=== PATIENT | male | born 1985 | race Caucasian/White ===

== ENCOUNTER 2016-08-03 00:43 | Emergency (ER) | payer SELFPAY ==
--- NOTE | 2016-08-03 02:33 | ED CLINICAL REPORT ---
Clinical Report - Physicians/Mid Levels [facility] [address] [place] [address] 08/03/2016 0:47 Patient: CHAU MARTINEZ Time Seen: 01:44. Arrived- By private vehicle. Historian- patient. HISTORY OF PRESENT ILLNESS Location of injuries- chest. Chief Complaint: Injury to CHEST. The injury occurred several weeks ago. Occurred at home. The patient sustained a moderate blow (he was wrestling with a friend who landed on his chest). The patient complains of moderate pain. No blow to the head or loss of consciousness. REVIEW OF SYSTEMS No chills, fever, sweats, calf pain or cough. No difficulty breathing, pedal edema, palpitations, abdominal pain or constipation. No diarrhea, nausea, vomiting or urinary problems. he requests a refill on his albuterol. All systems otherwise negative, except as recorded above. PAST HISTORY Problems: Asthma. Gastroesophageal Reflux Disease. Hep C. Additional Surgeries: no known surgeries. Medications: Omeprazole Oral. Hydrocodone. Allergies: No Known Drug Allergy. SOCIAL HISTORY Current every day light tobacco smoker (cigarette)- less than 1/2 a pack per day. History of drug use: methamphetamines. FAMILY HISTORY Denies family medical history. ADDITIONAL NOTES The nursing notes have been reviewed. PHYSICAL EXAM Vital Signs: 08/03/2016 01:14 BP: 152/89. HR: 110. RR: 20. O2 saturation: 99%. Temp: 98 F. Have been reviewed. Appearance: Alert. Head: No swelling of head. Eyes: Pupils equal, round and reactive to light. ENT: No dental injury. Pharynx normal. Neck: Painless ROM. Non-tender. No vertebral tenderness. CVS: Heart sounds normal. Respiratory: Chest wall injury: mild tenderness located in the right and left chest. No splinting present. Abdomen: No visible injury. Soft and nontender. Bowel sounds normal. No organomegaly. No mass. Back: No tenderness. ROM normal. Skin: Skin intact. Skin warm and dry. Normal skin color. Normal skin turgor. Extremities: Normal inspection. Pelvis stable. No lower extremity edema. Neuro: No motor deficit. No sensory deficit. LABS, X-RAYS, AND EKG X-Rays: Chest X-ray negative. The X-rays were independently viewed by me. PROGRESS AND PROCEDURES Course of Care: Patient is stable. Patient/family counseled. Old medical records ordered. Old records unavailable. Disposition: Discharged. Condition: stable. CLINICAL IMPRESSION Asthma. Costochondritis INSTRUCTIONS Do not smoke- benefits of smoking cessation discussed (>3 -10 minutes). Seek medical help to quit smoking. Warnings: GENERAL WARNINGS: Return or contact your physician immediately if your condition worsens or changes unexpectedly, if not improving as expected, or if other problems arise. Prescription Medications: Ibuprofen 600mg tablets: take 1 tablet orally every 8 hours as needed for pain. Dispense thirty (30). No refills. Albuterol HFA oral inhaler: inhale 2 puffs via spacer every 4 hours as needed. Dispense one (1) unit. No refill. Understanding of the discharge instructions verbalized by patient. Follow-up with: [facility], , , [address], , [place], [address] Follow up in seven days. Call for the next available appointment. (Electronically signed by Cornel Rawls MD 08/03/2016 9:20)
--- NOTE | 2016-08-03 02:33 | ED ORDER SUMMARY ---
..... Patient: CHAU MARTINEZ OrderSheet [facility] VisitID: [id number] [address] [place] [address] 30y, M Registration Date/Time: 08/03/2016 ORDER SHEET Weight: 65.7 kg Allergies: No Known Drug Allergy GENERAL ORDERS: Chest 2V Urgent (01:01 08/03/2016 Gurwinder RAMIREZ) (Ack 1:07 AMcQuoid ER Tech1) (1:46 Jillian) MEDICATION ORDERS: IV FLUIDS: ORDER SHEET NOTES: [Electronically signed by Daniel Parra R.N. (02:43 08/03/2016)] [Electronically signed by Cornel Rawls MD (09:20 08/03/2016)] [Electronically locked/signed by Daniel Parra R.N. (02:43 08/03/2016)]
--- NOTE | 2016-08-03 02:33 | ED NURSING NOTES ---
Clinical Report - Nurses [facility] [place] [address] 08/03/2016 0:47 [id number] <<STRICKEN ENTRY-- Triage time 00:51 Aug 03 2016. Acuity: LEVEL 4. Chief Complaint: (right posterior chest wall pain). SEPSIS SCREEN: Sepsis Screen. Negative (no infection suspected/documented). SHAHID COMA SCORE: [place] Coma Scale: 15- eyes open spontaneously (4); best verbal response- oriented x 4 (5); best motor response- obeys commands (6). --00:56 Yoselyn Tejeda R.N. --END STRIKE>> Charted On Wrong Patient --01:17 Yoselyn Tejeda R.N. <<STRICKEN ENTRY-- 00:51 08/03/16. BP: 149/99. HR: 133. RR: 18. O2 saturation: 99%. Temp: 98.4 F. Pain level now 10/10. --00:56 Yoselyn Tejeda R.N. --END STRIKE>> Charted on wrong patient. --01:16 Yoselyn Tejeda R.N. Triage time 01:10. Acuity: LEVEL 4. --01:15 Daniel Parra R.N. 01:14 08/03/16. BP: 152/89. HR: 110. RR: 20. O2 saturation: 99%. Temp: 98 F. Pain level now 8/10. --01:15 Daniel Parra R.N. <<STRICKEN ENTRY-- Weight: 113.3 kg. Height/Length: 74 inches. BMI: 32.1. --END STRIKE>> Charted on wrong patient --00:49 Yoselyn Tejeda R.N.. Weight: 65.7 kg. Height/Length: 71 inches. BMI: 20.2. --00:49 Inderbitzen, Yoselyn, R.N. Medications Hydrocodone. --00:52 Yoselyn Tejeda R.N. Omeprazole Oral. --00:55 Yoselyn Tejeda R.N. Allergies No Known Drug Allergy. --00:54 Yoselyn Tejeda R.N. <<STRICKEN ENTRY-- Medication/allergy information source: the patient. --00:56 Yoselyn Tejeda R.N. --END STRIKE>> Charted On Wrong Patient --01:16 InderbitYoselyn dudley, R.N. History <<STRICKEN ENTRY-- Arrived by private vehicle, and accompanied by family. Onset. (8 days). ( pain started 8 days ago, feels like ribs on back of right side are popping. there is no recent trauma). No fever. Treatment MICROSTRATEGY DEVELOPER: (hydrocodone). SOCIAL HX: Heavy tobacco smoker- less than 1 pack per day. Occasional alcohol use. History of drug use: marijuana. No infectious disease exposure. ABUSE ASSESSMENT: No report of abuse. SELF HARM ASSESSMENT: A self harm assessment was performed. The patient answered "no" to the question "Have you recently felt down, depressed, or hopeless?", "Have you noticed less interest or pleasure in doing things?", "Do you have thoughts of harming or killing yourself?", "Are you here because you tried to hurt yourself?", "Have you ever tried to hurt yourself before today?", "Have you recently had thoughts about harming or killing others?" and "Do you have any dangerous items in your possession?". NUTRITIONAL RISK ASSESSMENT: The nutritional risk assessment revealed no deficiencies. FUNCTIONAL ASSESSMENT: Functional assessment: no impairments noted. LEARNING NEEDS ASSESSMENT: The learning needs assessment revealed no barriers. SKIN INTEGRITY ASSESSMENT: Skin integrity risk assessment completed. No skin integrity risk identified. --00:56 Yoselyn Tejeda R.N. --END STRIKE>> Charted On Wrong Patient --01:16 Yoselyn Tejeda R.N. Arrived by private vehicle. Historian: patient. Accompanied by friend. ( Pt stated he had a broken rib on the right side, but did not ever get it checked by a doctor. Pt was horse playing about 2 weeks ago and was hit in the chest with his friend's knees. Pt came in today with left sided). --01:15 Daniel Parra R.N. Treatment MICROSTRATEGY DEVELOPER: None. SOCIAL HX: Current every day light tobacco smoker (cigarette)- less than 1/2 a pack per day. History of heavy drug use: methamphetamines. --01:20 Daniel Parra R.N. PROBLEMS: Gastroesophageal Reflux Disease. Hep C. --00:55 Yoselyn Tejeda R.N. ADDITIONAL SURGERIES: no known surgeries. Interventions <<STRICKEN ENTRY-- 00:51 08/03/16. ID band on patient. --00:56 Yoselyn Tejeda R.N. --END STRIKE>> Charted On Wrong Patient --01:16 Yoselyn Tejeda R.N. ID band on patient. To waiting room. --01:15 Daniel Parra R.N. PHYSICAL ASSESSMENT GENERAL / NEURO / PSYCH: Alert. Oriented X 4. Appears in no acute distress. HEENT: Pupils equal, round and reactive to light. No facial asymmetry noted. Mucous membranes are pink. RESPIRATORY: Respirations not labored. Right mid- chest wall tenderness and left mid- chest wall tenderness. Breath sounds within normal limits. ( Pt says he is feeling sob, but shows no signs of labored breathing or sob.). CVS: Normal sinus rhythm noted. Capillary refill less than 2 seconds. Pulses within normal limits. GI / : Abdomen soft and nontender and normal bowel sounds. SKIN: Skin intact. Skin is warm and dry. Normal skin turgor. --01:19 Daniel Parra R.N. NURSING PROGRESS NOTES 00:55 08/03/16. The initial plan of care for this patient includes an assessment with efforts to address the presence of pain. This plan of care was discussed with the patient. Patient gowned. Reassurance given. Patient identifiers checked. Call light placed in reach. Side rails up x 1. Bed placed in lowest position. Brakes of bed on. Patient ready for evaluation. --00:59 Yoselyn Tejeda R.N. Patient gowned. ( pt was taken to x ray. pt ambulated without assistance to x ray.). --01:18 Daniel Parra R.N. DISPOSITION / DISCHARGE Departure time: 02:41. Condition at departure: unchanged. ( still having rib pain). No learning barriers present. Discharge instructions provided and reviewed with the patient. Reviewed medication(s) side effects, precautions, dosing and course information (allbuterol). Patient verbalized understanding. Written instructions provided in Persian. The patient was discharged by the physician. He was discharged home and accompanied by child nutrition assistant. He left the Emergency Department ambulatory and via private vehicle. Hotel Conc[employer] driving. --02:42 Daniel Parra R.N. 02:37 08/03/16. BP: 131/84. HR: 98. RR: 15. O2 saturation: 100%. Pain level now 08/16. --02:42 Daniel Parra R.N. Locked/Released at 08/03/2016 2:43 by Daniel Parra R.N.
--- NOTE | 2016-08-03 02:33 | ED ORDER SUMMARY ---
..... Patient: CHAU MARTINEZ OrderSheet [facility] VisitID: [id number] [address] [place] [address] 30y, M Registration Date/Time: 08/03/2016 ORDER SHEET Weight: 65.7 kg Allergies: No Known Drug Allergy GENERAL ORDERS: Chest 2V Urgent (01:01 08/03/2016 Gurwinder RAMIREZ) (Ack 1:07 AMcQuoid ER Tech1) (1:46 Jillian) MEDICATION ORDERS: IV FLUIDS: ORDER SHEET NOTES: [Electronically signed by Daniel Parra R.N. (02:43 08/03/2016)] [Electronically signed by Cornel Rawls MD (09:20 08/03/2016)] [Electronically locked/signed by Daniel Parra R.N. (02:43 08/03/2016)]
--- NOTE | 2016-08-03 02:33 | ED NURSING NOTES ---
Clinical Report - Nurses [facility] [address] [place] [address] 08/03/2016 0:47 [id number] <<STRICKEN ENTRY-- Triage time 00:51 Aug 03 2016. Acuity: LEVEL 4. Chief Complaint: (right posterior chest wall pain). SEPSIS SCREEN: Sepsis Screen. Negative (no infection suspected/documented). SHAHID COMA SCORE: [place] Coma Scale: 15- eyes open spontaneously (4); best verbal response- oriented x 4 (5); best motor response- obeys commands (6). --00:56 Yoselyn Tejeda R.N. --END STRIKE>> Charted On Wrong Patient --01:17 Yoselyn Tejeda R.N. <<STRICKEN ENTRY-- 00:51 08/03/16. BP: 149/99. HR: 133. RR: 18. O2 saturation: 99%. Temp: 98.4 F. Pain level now 10/10. --00:56 Yoselyn Tejeda R.N. --END STRIKE>> Charted on wrong patient. --01:16 Yoselyn Tejeda R.N. Triage time 01:10. Acuity: LEVEL 4. --01:15 Daniel Parra R.N. 01:14 08/03/16. BP: 152/89. HR: 110. RR: 20. O2 saturation: 99%. Temp: 98 F. Pain level now 8/10. --01:15 Daniel Parra R.N. <<STRICKEN ENTRY-- Weight: 113.3 kg. Height/Length: 74 inches. BMI: 32.1. --END STRIKE>> Charted on wrong patient --00:49 Yoselyn Tejeda R.N.. Weight: 65.7 kg. Height/Length: 71 inches. BMI: 20.2. --00:49 Inderbitzen, Yoselyn, R.N. Medications Hydrocodone. --00:52 Yoselyn Tejeda R.N. Omeprazole Oral. --00:55 Yoselyn Tejeda R.N. Allergies No Known Drug Allergy. --00:54 Yoselyn Tejeda R.N. <<STRICKEN ENTRY-- Medication/allergy information source: the patient. --00:56 Yoselyn Tejeda R.N. --END STRIKE>> Charted On Wrong Patient --01:16 InderbitYoselyn dudley, R.N. History <<STRICKEN ENTRY-- Arrived by private vehicle, and accompanied by family. Onset. (8 days). ( pain started 8 days ago, feels like ribs on back of right side are popping. there is no recent trauma). No fever. Treatment JOWL TRIMMER: (hydrocodone). SOCIAL HX: Heavy tobacco smoker- less than 1 pack per day. Occasional alcohol use. History of drug use: marijuana. No infectious disease exposure. ABUSE ASSESSMENT: No report of abuse. SELF HARM ASSESSMENT: A self harm assessment was performed. The patient answered "no" to the question "Have you recently felt down, depressed, or hopeless?", "Have you noticed less interest or pleasure in doing things?", "Do you have thoughts of harming or killing yourself?", "Are you here because you tried to hurt yourself?", "Have you ever tried to hurt yourself before today?", "Have you recently had thoughts about harming or killing others?" and "Do you have any dangerous items in your possession?". NUTRITIONAL RISK ASSESSMENT: The nutritional risk assessment revealed no deficiencies. FUNCTIONAL ASSESSMENT: Functional assessment: no impairments noted. LEARNING NEEDS ASSESSMENT: The learning needs assessment revealed no barriers. SKIN INTEGRITY ASSESSMENT: Skin integrity risk assessment completed. No skin integrity risk identified. --00:56 Yoselyn Tejeda R.N. --END STRIKE>> Charted On Wrong Patient --01:16 Yoselyn Tejeda R.N. Arrived by private vehicle. Historian: patient. Accompanied by friend. ( Pt stated he had a broken rib on the right side, but did not ever get it checked by a doctor. Pt was horse playing about 2 weeks ago and was hit in the chest with his friend's knees. Pt came in today with left sided). --01:15 Daniel Parra R.N. Treatment JOWL TRIMMER: None. SOCIAL HX: Current every day light tobacco smoker (cigarette)- less than 1/2 a pack per day. History of heavy drug use: methamphetamines. --01:20 Daniel Parra R.N. PROBLEMS: Gastroesophageal Reflux Disease. Hep C. --00:55 Yoselyn Tejeda R.N. ADDITIONAL SURGERIES: no known surgeries. Interventions <<STRICKEN ENTRY-- 00:51 08/03/16. ID band on patient. --00:56 Yoselyn Tejeda R.N. --END STRIKE>> Charted On Wrong Patient --01:16 Yoselyn Tejeda R.N. ID band on patient. To waiting room. --01:15 Daniel Parra R.N. PHYSICAL ASSESSMENT GENERAL / NEURO / PSYCH: Alert. Oriented X 4. Appears in no acute distress. HEENT: Pupils equal, round and reactive to light. No facial asymmetry noted. Mucous membranes are pink. RESPIRATORY: Respirations not labored. Right mid- chest wall tenderness and left mid- chest wall tenderness. Breath sounds within normal limits. ( Pt says he is feeling sob, but shows no signs of labored breathing or sob.). CVS: Normal sinus rhythm noted. Capillary refill less than 2 seconds. Pulses within normal limits. GI / : Abdomen soft and nontender and normal bowel sounds. SKIN: Skin intact. Skin is warm and dry. Normal skin turgor. --01:19 Daniel Parra R.N. NURSING PROGRESS NOTES 00:55 08/03/16. The initial plan of care for this patient includes an assessment with efforts to address the presence of pain. This plan of care was discussed with the patient. Patient gowned. Reassurance given. Patient identifiers checked. Call light placed in reach. Side rails up x 1. Bed placed in lowest position. Brakes of bed on. Patient ready for evaluation. --00:59 Yoselyn Tejeda R.N. Patient gowned. ( pt was taken to x ray. pt ambulated without assistance to x ray.). --01:18 Daniel Parra R.N. DISPOSITION / DISCHARGE Departure time: 02:41. Condition at departure: unchanged. ( still having rib pain). No learning barriers present. Discharge instructions provided and reviewed with the patient. Reviewed medication(s) side effects, precautions, dosing and course information (allbuterol). Patient verbalized understanding. Written instructions provided in Slovak. The patient was discharged by the physician. He was discharged home and accompanied by tray service worker. He left the Emergency Department ambulatory and via private vehicle. [employer] driving. --02:42 Daniel Parra R.N. 02:37 08/03/16. BP: 131/84. HR: 98. RR: 15. O2 saturation: 100%. Pain level now 08/16. --02:42 Daniel Parra R.N. Locked/Released at 08/03/2016 2:43 by Daniel Parra R.N.
--- NOTE | 2016-08-03 02:33 | ED CLINICAL REPORT ---
Clinical Report - Physicians/Mid Levels [facility] [address] [place] [address] 08/03/2016 0:47 Patient: CHAU MARTINEZ Time Seen: 01:44. Arrived- By private vehicle. Historian- patient. HISTORY OF PRESENT ILLNESS Location of injuries- chest. Chief Complaint: Injury to CHEST. The injury occurred several weeks ago. Occurred at home. The patient sustained a moderate blow (he was wrestling with a friend who landed on his chest). The patient complains of moderate pain. No blow to the head or loss of consciousness. REVIEW OF SYSTEMS No chills, fever, sweats, calf pain or cough. No difficulty breathing, pedal edema, palpitations, abdominal pain or constipation. No diarrhea, nausea, vomiting or urinary problems. he requests a refill on his albuterol. All systems otherwise negative, except as recorded above. PAST HISTORY Problems: Asthma. Gastroesophageal Reflux Disease. Hep C. Additional Surgeries: no known surgeries. Medications: Omeprazole Oral. Hydrocodone. Allergies: No Known Drug Allergy. SOCIAL HISTORY Current every day light tobacco smoker (cigarette)- less than 1/2 a pack per day. History of drug use: methamphetamines. FAMILY HISTORY Denies family medical history. ADDITIONAL NOTES The nursing notes have been reviewed. PHYSICAL EXAM Vital Signs: 08/03/2016 01:14 BP: 152/89. HR: 110. RR: 20. O2 saturation: 99%. Temp: 98 F. Have been reviewed. Appearance: Alert. Head: No swelling of head. Eyes: Pupils equal, round and reactive to light. ENT: No dental injury. Pharynx normal. Neck: Painless ROM. Non-tender. No vertebral tenderness. CVS: Heart sounds normal. Respiratory: Chest wall injury: mild tenderness located in the right and left chest. No splinting present. Abdomen: No visible injury. Soft and nontender. Bowel sounds normal. No organomegaly. No mass. Back: No tenderness. ROM normal. Skin: Skin intact. Skin warm and dry. Normal skin color. Normal skin turgor. Extremities: Normal inspection. Pelvis stable. No lower extremity edema. Neuro: No motor deficit. No sensory deficit. LABS, X-RAYS, AND EKG X-Rays: Chest X-ray negative. The X-rays were independently viewed by me. PROGRESS AND PROCEDURES Course of Care: Patient is stable. Patient/family counseled. Old medical records ordered. Old records unavailable. Disposition: Discharged. Condition: stable. CLINICAL IMPRESSION Asthma. Costochondritis INSTRUCTIONS Do not smoke- benefits of smoking cessation discussed (>3 -10 minutes). Seek medical help to quit smoking. Warnings: GENERAL WARNINGS: Return or contact your physician immediately if your condition worsens or changes unexpectedly, if not improving as expected, or if other problems arise. Prescription Medications: Ibuprofen 600mg tablets: take 1 tablet orally every 8 hours as needed for pain. Dispense thirty (30). No refills. Albuterol HFA oral inhaler: inhale 2 puffs via spacer every 4 hours as needed. Dispense one (1) unit. No refill. Understanding of the discharge instructions verbalized by patient. Follow-up with: [facility], , , [address], , [place], [address] Follow up in seven days. Call for the next available appointment. (Electronically signed by Cornel Rawls MD 08/03/2016 9:20)
--- NOTE | 2016-08-03 08:32 | DIAGNOSTIC IMAGING REPORT ---
PROCEDURE: XR CHEST 2 VIEW INDICATION: CHEST PAIN TECHNIQUE: PA and lateral view. COMPARISON: None. FINDINGS: Lungs are clear. Artifact projects over the left lung base laterally. Cardiovascular structures are normal. Bony thorax is unremarkable. IMPRESSION: 1. Negative chest.
--- NOTE | 2016-08-03 09:21 | ED MED RECONCILIATION SUMMARY ---
Patient: CHAU MARTINEZ Medication Reconciliation Report [facility] VisitID: [id number] [address] [place] [address] 30y, M Registration Date/Time: 08/03/2016 Weight: 65.7 kg Height/Length: 71 in. BMI: 20.2 ALLERGIES: No Known Drug Allergy The patient's Home Medications are listed below: THE FOLLOWING MEDICATIONS NEED TO BE RECONCILED: Hydrocodone Omeprazole Oral The source(s) of the original Home Medication information: Not obtained. The following Medications were given to the patient in the Emergency Department: None. The following Medications were prescribed to the patient: Ibuprofen 600mg tablets: take 1 tablet orally every 8 hours as needed for pain. Dispense thirty (30). No refills. -- Cornel Rawls MD Albuterol HFA oral inhaler: inhale 2 puffs via spacer every 4 hours as needed. Dispense one (1) unit. No refill. -- Cornel Rawls MD
--- NOTE | 2016-08-03 09:21 | ED DISCHARGE INSTRUCTIONS ---
Patient: CHAU MARTINEZ General Instructions [facility] VisitID: [id number] [address] [place] [address] 30y, M Registration Date/Time: 08/03/2016 Asthma. Costochondritis INSTRUCTIONS Do not smoke- benefits of smoking cessation discussed (>3 -10 minutes). Seek medical help to quit smoking. Warnings: GENERAL WARNINGS: Return or contact your physician immediately if your condition worsens or changes unexpectedly, if not improving as expected, or if other problems arise. Prescription Medications: Ibuprofen 600mg tablets: take 1 tablet orally every 8 hours as needed for pain. Dispense thirty (30). No refills. Albuterol HFA oral inhaler: inhale 2 puffs via spacer every 4 hours as needed. Dispense one (1) unit. No refill. Understanding of the discharge instructions verbalized by patient. Follow-up with: [facility], , , [address], , [place], [id number] Follow up in seven days. Call for the next available appointment. ADDITIONAL INFORMATION Chest Wall Pain: Costochondritis The chest pain that you have had today is caused by Costochondritis. This condition is due to an inflammation of the cartilage joining the ribs to the breastbone. It is not caused by heart or lung problems. Although the exact cause for costochondritis is not known, it often occurs during times of emotional stress. It can be painful, but it is not dangerous. It usually disappears within one to two weeks, but may recur. Rarely, a more serious condition may cause symptoms similar to costochondritis; therefore, watch for the warning signs listed below. Home Care: If you feel that emotional stress is a cause of your condition, try to identify sources of that stress. It may not be obvious! Learn ways to deal with the stress in your life such as regular exercise, muscle relaxation, meditation, or simply taking time out for yourself. For more information about this, consult your doctor or go to a local bookstore and review books and tapes available on the subject of stress reduction. You may use acetaminophen (Tylenol) or ibuprofen (Motrin, Advil) to control pain, unless another pain medicine was prescribed. [ NOTE: If you have liver disease or ever had a stomach ulcer, talk with your doctor before using these medicines.] The use of heat (hot wet compress or heating pad) with or without local analgesic creams (Deep Heat Rub, Rolando Brewster) will be helpful to reduce pain. Follow Up with your doctor as directed or sooner if you do not start to improve within the next two days. Get Prompt Medical Attention if any of the following occur: A change in the type of pain: if it feels different, becomes more severe, lasts longer, or spreads into your shoulder, arm, neck, jaw or back Shortness of breath or increased pain with breathing Weakness, dizziness, or fainting Cough with dark colored sputum (phlegm) or blood Abdominal pain Dark red or black stools Fever of 100.4F (38C) or higher, or as directed by your healthcare provider How To Quit Smoking Smoking is one of the hardest habits to break. About half of all those who have ever smoked have been able to quit, and most of those (about 70%) who still smoke want to quit. Here are some of the best ways to stop smoking. Keep Trying: It takes most smokers about 8 tries before they are finally able to fully quit. So, the more often you try and fail, the better your chance of quitting the next time! So, don't give up! Go Cold [place]: Most ex-smokers quit cold turkey. Trying to cut back gradually doesn't seem to work as well, perhaps because it continues the smoking habit. Also, it is possible to fool yourself by inhaling more while smoking fewer cigarettes. This results in the same amount of nicotine in your body! Get Support: Support programs can make an important difference, especially for the heavy smoker. These groups offer lectures, methods to change your behavior and peer support. Call the free national Quitline for more information. 152-OMRA-ZYB (035-571-6467). Low-cost or free programs are offered by many hospitals, local chapters of the [place] [employer] (329-294-2718) and the [place] [employer] (023-574-9777). Support at home is important too. Non-smokers can help by offering praise and encouragement. If the smoker fails to quit, encourage them to try again! Hvhg-Cbp-Djvpyeh Medicines: For those who can't quit on their own, Nicotine Replacement Therapy (NRT) may make quitting much easier. Certain aids such as the nicotine patch, gum and lozenge are available without a prescription. However, it is best to use these under the guidance of your doctor. The skin patch provides a steady supply of nicotine to the body. Nicotine gum and lozenge gives temporary bursts of low levels of nicotine. Both methods take the edge off the craving for cigarettes. WARNING: If you feel symptoms of nicotine overdose, such as nausea, vomiting, dizziness, weakness, or fast heartbeat, stop using these and see your doctor. Prescription Medicines: After evaluating your smoking patterns and prior attempts at quitting, your doctor may offer a prescription medicine such as bupropion (Zyban, Wellbutrin), varenicline (Chantix, Champix), a niocotine inhaler or nasal spray. Each has its unique advantage and side effects which your doctor can review with you. Health Benefits Of Quitting: The benefits of quitting start right away and keep improving the longer you go without smokin minutes: blood pressure and pulse return to normal 8 hours: oxygen levels return to normal 2 days: ability to smell and taste begins to improve as damaged nerves start to regrow 2-3 weeks: circulation and lung function improves 1-9 months: decreased cough, congestion and shortness of breath; less tired 1 year: risk of heart attack decreases by half 5 years: risk of lung cancer decreases by half; risk of stroke becomes the same as a non-smoker For information about how to quit smoking, visit the following links: National Cancer [place] , Clearing the Air, Quit Smoking Today - an online booklet. http://www.smokefree.gov/pubs/clearing_the_air.pdf Smokefree.gov http://smokefree.gov/ QuitNet http://www.quitnet.com/ Ibuprofen Oral tablet What is this medicine? IBUPROFEN (eye BYOO proe fen) is a non-steroidal anti-inflammatory drug (NSAID). It is used for dental pain, fever, headaches or migraines, osteoarthritis, rheumatoid arthritis, or painful monthly periods. It can also relieve minor aches and pains caused by a cold, flu, or sore throat. How should I use this medicine? Take this medicine by mouth with a glass of water. Follow the directions on the prescription label. Take this medicine with food if your stomach gets upset. Try to not lie down for at least 10 minutes after you take the medicine. Take your medicine at regular intervals. Do not take your medicine more often than directed. A special MedGuide will be given to you by the pharmacist with each prescription and refill. Be sure to read this information carefully each time. Talk to your concrete layer regarding the use of this medicine in children. Special care may be needed. What side effects may I notice from receiving this medicine? Side effects that you should report to your doctor or health rn home care as soon as possible: allergic reactions like skin rash, itching or hives, swelling of the face, lips, or tongue black or bloody stools, blood in the urine or in vomit breathing problems changes in vision chest pain general ill feeling or flu-like symptoms nausea or vomiting redness, blistering, peeling or loosening of the skin, including inside the mouth slurred speech or weakness on one side of the body stomach pain unexplained weight gain or swelling unusually weak or tired yellowing of eyes or skin Side effects that usually do not require medical attention (report to your doctor or health rn home care if they continue or are bothersome): constipation or diarrhea dizziness gas or heartburn stomach upset What may interact with this medicine? Do not take this medicine with any of the following medications: cidofovir ketorolac methotrexate pemetrexed This medicine may also interact with the following medications: alcohol aspirin diuretics lithium other drugs for inflammation like prednisone warfarin What if I miss a dose? If you miss a dose, take it as soon as you can. If it is almost time for your next dose, take only that dose. Do not take double or extra doses. Where should I keep my medicine? Keep out of the reach of children. Store at room temperature between 15 and 30 degrees C (59 and 86 degrees F). Keep container tightly closed. Throw away any unused medicine after the expiration date. What should I tell my health care provider before I take this medicine? They need to know if you have any of these conditions: asthma cigarette smoker drink more than 3 alcohol containing drinks a day heart disease or circulation problems such as heart failure or leg edema (fluid retention) high blood pressure kidney disease liver disease stomach bleeding or ulcers an unusual or allergic reaction to ibuprofen, aspirin, other NSAIDS, other medicines, foods, dyes, or preservatives or trying to get breast-feeding What should I watch for while using this medicine? Tell your doctor or healthcare professional if your symptoms do not start to get better or if they get worse. This medicine does not prevent heart attack or stroke. In fact, this medicine may increase the chance of a heart attack or stroke. The chance may increase with longer use of this medicine and in people who have heart disease. If you take aspirin to prevent heart attack or stroke, talk with your doctor or health rn home care. Do not take other medicines that contain aspirin, ibuprofen, or naproxen with this medicine. Side effects such as stomach upset, nausea, or ulcers may be more likely to occur. Many medicines available without a prescription should not be taken with this medicine. This medicine can cause ulcers and bleeding in the stomach and intestines at any time during treatment. Ulcers and bleeding can happen without warning symptoms and can cause . To reduce your risk, do not smoke cigarettes or drink alcohol while you are taking this medicine. You may get drowsy or dizzy. Do not drive, use machinery, or do anything that needs mental alertness until you know how this medicine affects you. Do not stand or sit up quickly, especially if you are an older patient. This reduces the risk of dizzy or fainting spells. This medicine can cause you to bleed more easily. Try to avoid damage to your teeth and gums when you brush or floss your teeth. Albuterol Sulfate Pressurized inhalation, suspension What is this medicine? ALBUTEROL (al BYOO ter ole) is a bronchodilator. It helps open up the airways in your lungs to make it easier to breathe. This medicine is used to treat and to prevent bronchospasm. How should I use this medicine? This medicine is for inhalation through the mouth. Follow the directions on your prescription label. Take your medicine at regular intervals. Do not use more often than directed. Make sure that you are using your inhaler correctly. Ask you doctor or health care provider if you have any questions. Talk to your concrete layer regarding the use of this medicine in children. Special care may be needed. What side effects may I notice from receiving this medicine? Side effects that you should report to your doctor or health rn home care as soon as possible: allergic reactions like skin rash, itching or hives, swelling of the face, lips, or tongue breathing problems chest pain feeling faint or lightheaded, falls high blood pressure irregular heartbeat fever muscle cramps or weakness pain, tingling, numbness in the hands or feet vomiting Side effects that usually do not require medical attention (report to your doctor or health rn home care if they continue or are bothersome): cough difficulty sleeping headache nervousness or trembling stomach upset stuffy or runny nose throat irritation unusual taste What may interact with this medicine? anti-infectives like chloroquine and pentamidine caffeine cisapride diuretics medicines for colds medicines for depression or for emotional or psychotic conditions medicines for weight loss including some herbal products methadone some antibiotics like clarithromycin, erythromycin, levofloxacin, and linezolid some heart medicines steroid hormones like dexamethasone, cortisone, hydrocortisone theophylline thyroid hormones What if I miss a dose? If you miss a dose, use it as soon as you can. If it is almost time for your next dose, use only that dose. Do not use double or extra doses. Where should I keep my medicine? Keep out of the reach of children. Store at room temperature between 15 and 30 degrees C (59 and 86 degrees F). The contents are under pressure and may burst when exposed to heat or flame. Do not freeze. This medicine does not work as well if it is too cold. Throw away any unused medicine after the expiration date. Inhalers need to be thrown away after the labeled number of puffs have been used or by the expiration date; whichever comes first. Ventolin HFA should be thrown away 12 months after removing from foil pouch. Check the instructions that come with your medicine. What should I tell my health care provider before I take this medicine? They need to know if you have any of the following conditions: diabetes heart disease or irregular heartbeat high blood pressure pheochromocytoma seizures thyroid disease an unusual or allergic reaction to albuterol, levalbuterol, sulfites, other medicines, foods, dyes, or preservatives or trying to get breast-feeding What should I watch for while using this medicine? Tell your doctor or health rn home care if your symptoms do not improve. Do not use extra albuterol. If your asthma or bronchitis gets worse while you are using this medicine, call your doctor right away. If your mouth gets dry try chewing sugarless gum or sucking hard candy. Drink water as directed. You have been given the following additional information: Chest Wall Pain, Costochondritis Smoking Cessation Ibuprofen Oral tablet Albuterol Sulfate Pressurized inhalation, suspension (Electronically signed by Cornel Rawls MD 08/03/2016 9:20)
--- NOTE | 2016-08-03 09:21 | ED MAR SUMMARY ---
..... Medication Administration Record [facility] [address], [place] [id number] Patient: CHAU MARTINEZ Visit ID: [id number] 30y, M Weight: 65.7 kg Height/Length: 71 in BMI: 20.2 ALLERGIES: No Known Drug Allergy
--- NOTE | 2016-08-03 09:21 | ED DISCHARGE INSTRUCTIONS ---
Patient: CHAU MARTINEZ General Instructions [facility] VisitID: [id number] [address] [place] [place] [address] 30y, M Registration Date/Time: 08/03/2016 Asthma. Costochondritis INSTRUCTIONS Do not smoke- benefits of smoking cessation discussed (>3 -10 minutes). Seek medical help to quit smoking. Warnings: GENERAL WARNINGS: Return or contact your physician immediately if your condition worsens or changes unexpectedly, if not improving as expected, or if other problems arise. Prescription Medications: Ibuprofen 600mg tablets: take 1 tablet orally every 8 hours as needed for pain. Dispense thirty (30). No refills. Albuterol HFA oral inhaler: inhale 2 puffs via spacer every 4 hours as needed. Dispense one (1) unit. No refill. Understanding of the discharge instructions verbalized by patient. Follow-up with: [facility], , , [address], , [place], [id number] Follow up in seven days. Call for the next available appointment. ADDITIONAL INFORMATION Chest Wall Pain: Costochondritis The chest pain that you have had today is caused by Costochondritis. This condition is due to an inflammation of the cartilage joining the ribs to the breastbone. It is not caused by heart or lung problems. Although the exact cause for costochondritis is not known, it often occurs during times of emotional stress. It can be painful, but it is not dangerous. It usually disappears within one to two weeks, but may recur. Rarely, a more serious condition may cause symptoms similar to costochondritis; therefore, watch for the warning signs listed below. Home Care: If you feel that emotional stress is a cause of your condition, try to identify sources of that stress. It may not be obvious! Learn ways to deal with the stress in your life such as regular exercise, muscle relaxation, meditation, or simply taking time out for yourself. For more information about this, consult your doctor or go to a local bookstore and review books and tapes available on the subject of stress reduction. You may use acetaminophen (Tylenol) or ibuprofen (Motrin, Advil) to control pain, unless another pain medicine was prescribed. [ NOTE: If you have liver disease or ever had a stomach ulcer, talk with your doctor before using these medicines.] The use of heat (hot wet compress or heating pad) with or without local analgesic creams (Deep Heat Rub, Rolando Brewster) will be helpful to reduce pain. Follow Up with your doctor as directed or sooner if you do not start to improve within the next two days. Get Prompt Medical Attention if any of the following occur: A change in the type of pain: if it feels different, becomes more severe, lasts longer, or spreads into your shoulder, arm, neck, jaw or back Shortness of breath or increased pain with breathing Weakness, dizziness, or fainting Cough with dark colored sputum (phlegm) or blood Abdominal pain Dark red or black stools Fever of 100.4F (38C) or higher, or as directed by your healthcare provider How To Quit Smoking Smoking is one of the hardest habits to break. About half of all those who have ever smoked have been able to quit, and most of those (about 70%) who still smoke want to quit. Here are some of the best ways to stop smoking. Keep Trying: It takes most smokers about 8 tries before they are finally able to fully quit. So, the more often you try and fail, the better your chance of quitting the next time! So, don't give up! Go Cold [place]: Most ex-smokers quit cold turkey. Trying to cut back gradually doesn't seem to work as well, perhaps because it continues the smoking habit. Also, it is possible to fool yourself by inhaling more while smoking fewer cigarettes. This results in the same amount of nicotine in your body! Get Support: Support programs can make an important difference, especially for the heavy smoker. These groups offer lectures, methods to change your behavior and peer support. Call the free national Quitline for more information. 603-FFAS-DNN (842-565-6030). Low-cost or free programs are offered by many hospitals, local chapters of the [place] [employer] (589-832-0911) and the [place] [employer] (243-313-1818). Support at home is important too. Non-smokers can help by offering praise and encouragement. If the smoker fails to quit, encourage them to try again! Fqiq-Wth-Pczlutv Medicines: For those who can't quit on their own, Nicotine Replacement Therapy (NRT) may make quitting much easier. Certain aids such as the nicotine patch, gum and lozenge are available without a prescription. However, it is best to use these under the guidance of your doctor. The skin patch provides a steady supply of nicotine to the body. Nicotine gum and lozenge gives temporary bursts of low levels of nicotine. Both methods take the edge off the craving for cigarettes. WARNING: If you feel symptoms of nicotine overdose, such as nausea, vomiting, dizziness, weakness, or fast heartbeat, stop using these and see your doctor. Prescription Medicines: After evaluating your smoking patterns and prior attempts at quitting, your doctor may offer a prescription medicine such as bupropion (Zyban, Wellbutrin), varenicline (Chantix, Champix), a niocotine inhaler or nasal spray. Each has its unique advantage and side effects which your doctor can review with you. Health Benefits Of Quitting: The benefits of quitting start right away and keep improving the longer you go without smokin minutes: blood pressure and pulse return to normal 8 hours: oxygen levels return to normal 2 days: ability to smell and taste begins to improve as damaged nerves start to regrow 2-3 weeks: circulation and lung function improves 1-9 months: decreased cough, congestion and shortness of breath; less tired 1 year: risk of heart attack decreases by half 5 years: risk of lung cancer decreases by half; risk of stroke becomes the same as a non-smoker For information about how to quit smoking, visit the following links: National [employer] [place] , Clearing the Air, Quit Smoking Today - an online booklet. http://www.smokefree.gov/pubs/clearing_the_air.pdf Smokefree.gov http://smokefree.gov/ QuitNet http://www.quitnet.com/ Ibuprofen Oral tablet What is this medicine? IBUPROFEN (eye BYOO proe fen) is a non-steroidal anti-inflammatory drug (NSAID). It is used for dental pain, fever, headaches or migraines, osteoarthritis, rheumatoid arthritis, or painful monthly periods. It can also relieve minor aches and pains caused by a cold, flu, or sore throat. How should I use this medicine? Take this medicine by mouth with a glass of water. Follow the directions on the prescription label. Take this medicine with food if your stomach gets upset. Try to not lie down for at least 10 minutes after you take the medicine. Take your medicine at regular intervals. Do not take your medicine more often than directed. A special MedGuide will be given to you by the pharmacist with each prescription and refill. Be sure to read this information carefully each time. Talk to your cad designer regarding the use of this medicine in children. Special care may be needed. What side effects may I notice from receiving this medicine? Side effects that you should report to your doctor or health direct care professional as soon as possible: allergic reactions like skin rash, itching or hives, swelling of the face, lips, or tongue black or bloody stools, blood in the urine or in vomit breathing problems changes in vision chest pain general ill feeling or flu-like symptoms nausea or vomiting redness, blistering, peeling or loosening of the skin, including inside the mouth slurred speech or weakness on one side of the body stomach pain unexplained weight gain or swelling unusually weak or tired yellowing of eyes or skin Side effects that usually do not require medical attention (report to your doctor or health direct care professional if they continue or are bothersome): constipation or diarrhea dizziness gas or heartburn stomach upset What may interact with this medicine? Do not take this medicine with any of the following medications: cidofovir ketorolac methotrexate pemetrexed This medicine may also interact with the following medications: alcohol aspirin diuretics lithium other drugs for inflammation like prednisone warfarin What if I miss a dose? If you miss a dose, take it as soon as you can. If it is almost time for your next dose, take only that dose. Do not take double or extra doses. Where should I keep my medicine? Keep out of the reach of children. Store at room temperature between 15 and 30 degrees C (59 and 86 degrees F). Keep container tightly closed. Throw away any unused medicine after the expiration date. What should I tell my health care provider before I take this medicine? They need to know if you have any of these conditions: asthma cigarette smoker drink more than 3 alcohol containing drinks a day heart disease or circulation problems such as heart failure or leg edema (fluid retention) high blood pressure kidney disease liver disease stomach bleeding or ulcers an unusual or allergic reaction to ibuprofen, aspirin, other NSAIDS, other medicines, foods, dyes, or preservatives or trying to get breast-feeding What should I watch for while using this medicine? Tell your doctor or healthcare professional if your symptoms do not start to get better or if they get worse. This medicine does not prevent heart attack or stroke. In fact, this medicine may increase the chance of a heart attack or stroke. The chance may increase with longer use of this medicine and in people who have heart disease. If you take aspirin to prevent heart attack or stroke, talk with your doctor or health direct care professional. Do not take other medicines that contain aspirin, ibuprofen, or naproxen with this medicine. Side effects such as stomach upset, nausea, or ulcers may be more likely to occur. Many medicines available without a prescription should not be taken with this medicine. This medicine can cause ulcers and bleeding in the stomach and intestines at any time during treatment. Ulcers and bleeding can happen without warning symptoms and can cause . To reduce your risk, do not smoke cigarettes or drink alcohol while you are taking this medicine. You may get drowsy or dizzy. Do not drive, use machinery, or do anything that needs mental alertness until you know how this medicine affects you. Do not stand or sit up quickly, especially if you are an older patient. This reduces the risk of dizzy or fainting spells. This medicine can cause you to bleed more easily. Try to avoid damage to your teeth and gums when you brush or floss your teeth. Albuterol Sulfate Pressurized inhalation, suspension What is this medicine? ALBUTEROL (al BYOO ter ole) is a bronchodilator. It helps open up the airways in your lungs to make it easier to breathe. This medicine is used to treat and to prevent bronchospasm. How should I use this medicine? This medicine is for inhalation through the mouth. Follow the directions on your prescription label. Take your medicine at regular intervals. Do not use more often than directed. Make sure that you are using your inhaler correctly. Ask you doctor or health care provider if you have any questions. Talk to your cad designer regarding the use of this medicine in children. Special care may be needed. What side effects may I notice from receiving this medicine? Side effects that you should report to your doctor or health direct care professional as soon as possible: allergic reactions like skin rash, itching or hives, swelling of the face, lips, or tongue breathing problems chest pain feeling faint or lightheaded, falls high blood pressure irregular heartbeat fever muscle cramps or weakness pain, tingling, numbness in the hands or feet vomiting Side effects that usually do not require medical attention (report to your doctor or health direct care professional if they continue or are bothersome): cough difficulty sleeping headache nervousness or trembling stomach upset stuffy or runny nose throat irritation unusual taste What may interact with this medicine? anti-infectives like chloroquine and pentamidine caffeine cisapride diuretics medicines for colds medicines for depression or for emotional or psychotic conditions medicines for weight loss including some herbal products methadone some antibiotics like clarithromycin, erythromycin, levofloxacin, and linezolid some heart medicines steroid hormones like dexamethasone, cortisone, hydrocortisone theophylline thyroid hormones What if I miss a dose? If you miss a dose, use it as soon as you can. If it is almost time for your next dose, use only that dose. Do not use double or extra doses. Where should I keep my medicine? Keep out of the reach of children. Store at room temperature between 15 and 30 degrees C (59 and 86 degrees F). The contents are under pressure and may burst when exposed to heat or flame. Do not freeze. This medicine does not work as well if it is too cold. Throw away any unused medicine after the expiration date. Inhalers need to be thrown away after the labeled number of puffs have been used or by the expiration date; whichever comes first. Ventolin HFA should be thrown away 12 months after removing from foil pouch. Check the instructions that come with your medicine. What should I tell my health care provider before I take this medicine? They need to know if you have any of the following conditions: diabetes heart disease or irregular heartbeat high blood pressure pheochromocytoma seizures thyroid disease an unusual or allergic reaction to albuterol, levalbuterol, sulfites, other medicines, foods, dyes, or preservatives or trying to get breast-feeding What should I watch for while using this medicine? Tell your doctor or health direct care professional if your symptoms do not improve. Do not use extra albuterol. If your asthma or bronchitis gets worse while you are using this medicine, call your doctor right away. If your mouth gets dry try chewing sugarless gum or sucking hard candy. Drink water as directed. You have been given the following additional information: Chest Wall Pain, Costochondritis Smoking Cessation Ibuprofen Oral tablet Albuterol Sulfate Pressurized inhalation, suspension (Electronically signed by Cornel Rawls MD 08/03/2016 9:20)
--- NOTE | 2016-08-03 09:21 | ED MED RECONCILIATION SUMMARY ---
Patient: CHAU MARTINEZ Medication Reconciliation Report [facility] VisitID: [id number] [address] [place] [address] 30y, M Registration Date/Time: 08/03/2016 Weight: 65.7 kg Height/Length: 71 in. BMI: 20.2 ALLERGIES: No Known Drug Allergy The patient's Home Medications are listed below: THE FOLLOWING MEDICATIONS NEED TO BE RECONCILED: Hydrocodone Omeprazole Oral The source(s) of the original Home Medication information: Not obtained. The following Medications were given to the patient in the Emergency Department: None. The following Medications were prescribed to the patient: Ibuprofen 600mg tablets: take 1 tablet orally every 8 hours as needed for pain. Dispense thirty (30). No refills. -- Cornel Rawls MD Albuterol HFA oral inhaler: inhale 2 puffs via spacer every 4 hours as needed. Dispense one (1) unit. No refill. -- Cornel Rawls MD
--- NOTE | 2016-08-03 09:21 | ED MAR SUMMARY ---
..... Medication Administration Record [facility] [address], [place] [id number] Patient: CHAU MARTINEZ Visit ID: [id number] 30y, M Weight: 65.7 kg Height/Length: 71 in BMI: 20.2 ALLERGIES: No Known Drug Allergy
== END 2016-08-03 02:42 | disposition home or self-care (01) ==
LOC: ED SRH 00:43
DX: M94.0 Chondrocostal junction syndrome [Tietze] (principal); J45.909 Unspecified asthma, uncomplicated; W50.0XXA Accidental hit or strike by another person, initial encounter; Y93.69 Activity, other involving other sports and athletics played as a team or group; Y92.009 Unspecified place in unspecified non-institutional (private) residence as the place of occurrence of the external cause; Y99.8 Other external cause status; F17.200 Nicotine dependence, unspecified, uncomplicated; Z79.899 Other long term (current) drug therapy; Z79.891 Long term (current) use of opiate analgesic

== ENCOUNTER 2016-09-06 20:33 | Emergency (ER) | payer SELFPAY ==
--- NOTE | 2016-09-06 20:40 | ED NURSING NOTES ---
Clinical Report - Nurses [facility] [address] [place] [address] 09/06/2016 20:32 Patient: CHAU MARTINEZ TRIAGE Triage time 20:30. Acuity: LEVEL 4. Chief Complaint: (CLEAR TO BOOK). --20:33 Corrie RYaseminN. 20:30 09/06/16. BP: 138/79. HR: 108. RR: 16. O2 saturation: 100%. Temp: 98.7 F. Pain level now: 0/10. --20:33 Corrie RYaseminN. Weight: 74.8 kg. Height/Length: 68 inches. BMI: 25.1. --20:32 Corrie R.N. Medications Albuterol Sulfate HFA Inhalation. --20:31 Julieth Denton. Allergies No Known Drug Allergy. --20:31 Corrie RAimee. History Historian: patient. Arrived in police custody. Treatment CONTROL CLERK AUDITING: None. PAST MEDICAL HX: Immunizations: up-to-date. SOCIAL HX: Light tobacco smoker- less than 1/2 a pack per day. Regular alcohol use. History of drug use: heroin, methamphetamines. Recently used drugs yesterday. No infectious disease exposure. SELF HARM ASSESSMENT: A self harm assessment was performed. The patient answered "no" to the question "Have you recently felt down, depressed, or hopeless?", "Have you noticed less interest or pleasure in doing things?", "Do you have thoughts of harming or killing yourself?", "Are you here because you tried to hurt yourself?", "Have you ever tried to hurt yourself before today?", "Have you recently had thoughts about harming or killing others?" and "Do you have any dangerous items in your possession?". FALL RISK ASSESSMENT: Fall risk assessment completed. No fall risk identified. NUTRITIONAL RISK ASSESSMENT: The nutritional risk assessment revealed no deficiencies. FUNCTIONAL ASSESSMENT: Functional assessment: no impairments noted. LEARNING NEEDS ASSESSMENT: The learning needs assessment revealed no barriers. SKIN INTEGRITY ASSESSMENT: Skin integrity risk assessment completed. No skin integrity risk identified. --20:33 Cesar eDnton PROBLEMS: Asthma. --20:32 Julieth Denton. ADDITIONAL SURGERIES: Hernia Repair. --20:32 Julieth Denton. Interventions ID band on patient. To treatment room. --20:33 Cesar Denton PHYSICAL ASSESSMENT Ambulatory to room. GENERAL / NEURO / PSYCH: Alert. Oriented X 4. Appears in no acute distress. HEENT: Pupils equal, round and reactive to light. No facial asymmetry noted. Mucous membranes are pink. RESPIRATORY: Respirations not labored. Chest nontender. Breath sounds within normal limits. CVS: Normal sinus rhythm noted. Capillary refill less than 2 seconds. Pulses within normal limits. GI / : Abdomen soft and nontender and normal bowel sounds. SKIN: Skin is warm and dry. Normal skin turgor. --20:33 Cesar Denton NURSING PROGRESS NOTES Patient identifiers checked. Call light placed in reach. Side rails up x 1. Bed placed in lowest position. Brakes of bed on. --20:34 Cesar Denton DISPOSITION / DISCHARGE Departure time: 20:45. Condition at departure: improved. No learning barriers present. Discharge instructions provided and reviewed with the patient (police). Reviewed medication(s) side effects, precautions, dosing and course information. Prescription(s) given to the patient. Patient verbalized understanding. Written instructions provided in [place]. Verbalized understanding (police). No warning instructions, treatment instructions, referrals given to the patient, diet instructions or activity restrictions. No note given, follow up contact number given or stop smoking instructions. The patient was discharged by the nurse practitioner. He was discharged to police department facility and accompanied by a police escort. He left the Emergency Department ambulatory and via police department vehicle. Driving (police). FALL RISK ASSESSMENT: Fall risk assessment completed. No fall risk identified. --20:45 Cesar Denton 20:44 09/06/16. BP: deferred. HR: deferred. RR: deferred. O2 saturation: deferred. Pain level now deferred. --20:45 Cesar Denton Locked/Released at 09/06/2016 20:45 by Cesar Denton
--- NOTE | 2016-09-06 20:40 | ED CLINICAL REPORT ---
Clinical Report - Physicians/Mid Levels [facility] [address] [place] [address] 09/06/2016 20:32 Patient: CHAU MARTINEZ Time Seen: 2029; upon arrival, initial patient contact, initial documentation, patient care assumed. Arrived- Police present. Historian- patient and police. HISTORY OF PRESENT ILLNESS Chief Complaint: ( clear to book). This started just prior to arrival. No current or associated symptoms. (pt here with police and officer needs pt medically cleared for group home, pt stating his skin is crawling, and that he is cold because he slept outside last night, and that he hx of asthma and no asthma med officer stating that he withdrawing possibly from drugs and needs him checked). Similar symptoms previously: None. Recent medical care: Not recently seen/assessed. REVIEW OF SYSTEMS No fever, sore throat, sinus drainage, nasal congestion or difficulty breathing. No chest pain, abdominal pain, vomiting, diarrhea or skin rash. He has had a cough. All systems otherwise negative, except as recorded above. PAST HISTORY See nurses notes. PROBLEMS: Asthma. --20:32 Julieth Denton. ADDITIONAL SURGERIES: Hernia Repair. --20:32 Julieth Denton. SOCIAL HISTORY Light tobacco smoker. Regular alcohol use. History of heavy IV drug use: heroin, methamphetamines. Recently used drugs today. Under influence in ED. Is a local resident. FAMILY HISTORY Negative. ADDITIONAL NOTES The nursing notes have been reviewed with agreement regarding the chief complaint, HPI, ROS, PMH and patient medications and allergies. PHYSICAL EXAM Vital Signs: 09/06/2016 20:30 BP: 138/79. HR: 108. RR: 16. O2 saturation: 100%. Temp: 98.7 F. Pain level now: 0/10. Have been reviewed as abnormal and appear to be correct. Blood pressure normal. Tachycardic. Respiratory rate normal. Temperature normal. Oxygen saturation normal. Appearance: Alert. No acute distress. Eyes: Pupils equal, round and reactive to light. Eyes normal inspection. Neck: Normal inspection. Neck supple. CVS: Normal heart rate and rhythm. Heart sounds normal. Pulses normal. Respiratory: No respiratory distress. Breath sounds normal. Chest nontender. Abdomen: No visible injury. Soft and nontender. Back: Normal inspection. Skin: Skin warm and dry. Normal skin color. No rash. Normal skin turgor. Extremities: Extremities exhibit normal ROM. No lower extremity edema. Neuro: Oriented X 3. No motor deficit. No sensory deficit. PROGRESS AND PROCEDURES Patient counseled in person regarding the patient's stable condition and diagnosis. Differential Diagnosis: Other possible considerations: substance abuse, asthma, rash. Above considerations are based on history and physical exam. Differential diagnosis was discussed with patient. Disposition: Discharged home in good and unchanged condition (20:39). Condition: good and stable. CLINICAL IMPRESSION Normal exam upon presentation, while in the ED and at discharge. INSTRUCTIONS (patient is medically cleared to go with police to group home). Warnings: GENERAL WARNINGS: Return or contact your physician immediately if your condition worsens or changes unexpectedly, if not improving as expected, or if other problems arise. Specifically return if problem worsens. Prescription Medications: Albuterol HFA oral inhaler: inhale 1 to 2 puffs every four to six hours as needed for difficulty breathing. Dispense one (1) unit. No refills. Follow-up: Follow up with your doctor in about one week as needed. Call for an appointment. Summary of care provided to patient. Understanding of the discharge instructions verbalized by patient. (Electronically signed by Nunu Winslow A.R.N.P. 09/06/2016 20:59)
--- NOTE | 2016-09-06 20:40 | ED CLINICAL REPORT ---
Clinical Report - Physicians/Mid Levels [facility] [address] [place] [address] 09/06/2016 20:32 Patient: CHAU MRATINEZ Time Seen: 2029; upon arrival, initial patient contact, initial documentation, patient care assumed. Arrived- Police present. Historian- patient and police. HISTORY OF PRESENT ILLNESS Chief Complaint: ( clear to book). This started just prior to arrival. No current or associated symptoms. (pt here with police and officer needs pt medically cleared for fdc, pt stating his skin is crawling, and that he is cold because he slept outside last night, and that he hx of asthma and no asthma med officer stating that he withdrawing possibly from drugs and needs him checked). Similar symptoms previously: None. Recent medical care: Not recently seen/assessed. REVIEW OF SYSTEMS No fever, sore throat, sinus drainage, nasal congestion or difficulty breathing. No chest pain, abdominal pain, vomiting, diarrhea or skin rash. He has had a cough. All systems otherwise negative, except as recorded above. PAST HISTORY See nurses notes. PROBLEMS: Asthma. --20:32 Julieth Denton. ADDITIONAL SURGERIES: Hernia Repair. --20:32 Julieth Denton. SOCIAL HISTORY Light tobacco smoker. Regular alcohol use. History of heavy IV drug use: heroin, methamphetamines. Recently used drugs today. Under influence in ED. Is a local resident. FAMILY HISTORY Negative. ADDITIONAL NOTES The nursing notes have been reviewed with agreement regarding the chief complaint, HPI, ROS, PMH and patient medications and allergies. PHYSICAL EXAM Vital Signs: 09/06/2016 20:30 BP: 138/79. HR: 108. RR: 16. O2 saturation: 100%. Temp: 98.7 F. Pain level now: 0/10. Have been reviewed as abnormal and appear to be correct. Blood pressure normal. Tachycardic. Respiratory rate normal. Temperature normal. Oxygen saturation normal. Appearance: Alert. No acute distress. Eyes: Pupils equal, round and reactive to light. Eyes normal inspection. Neck: Normal inspection. Neck supple. CVS: Normal heart rate and rhythm. Heart sounds normal. Pulses normal. Respiratory: No respiratory distress. Breath sounds normal. Chest nontender. Abdomen: No visible injury. Soft and nontender. Back: Normal inspection. Skin: Skin warm and dry. Normal skin color. No rash. Normal skin turgor. Extremities: Extremities exhibit normal ROM. No lower extremity edema. Neuro: Oriented X 3. No motor deficit. No sensory deficit. PROGRESS AND PROCEDURES Patient counseled in person regarding the patient's stable condition and diagnosis. Differential Diagnosis: Other possible considerations: substance abuse, asthma, rash. Above considerations are based on history and physical exam. Differential diagnosis was discussed with patient. Disposition: Discharged home in good and unchanged condition (20:39). Condition: good and stable. CLINICAL IMPRESSION Normal exam upon presentation, while in the ED and at discharge. INSTRUCTIONS (patient is medically cleared to go with police to fdc). Warnings: GENERAL WARNINGS: Return or contact your physician immediately if your condition worsens or changes unexpectedly, if not improving as expected, or if other problems arise. Specifically return if problem worsens. Prescription Medications: Albuterol HFA oral inhaler: inhale 1 to 2 puffs every four to six hours as needed for difficulty breathing. Dispense one (1) unit. No refills. Follow-up: Follow up with your doctor in about one week as needed. Call for an appointment. Summary of care provided to patient. Understanding of the discharge instructions verbalized by patient. (Electronically signed by Nunu Winslow A.R.N.P. 09/06/2016 20:59)
--- NOTE | 2016-09-06 20:40 | ED NURSING NOTES ---
Clinical Report - Nurses [facility] [address] [place] [address] 09/06/2016 20:32 Patient: CHAU MARTINEZ TRIAGE Triage time 20:30. Acuity: LEVEL 4. Chief Complaint: (CLEAR TO BOOK). --20:33 Corrie RYaseminN. 20:30 09/06/16. BP: 138/79. HR: 108. RR: 16. O2 saturation: 100%. Temp: 98.7 F. Pain level now: 0/10. --20:33 Corrie RYaseminN. Weight: 74.8 kg. Height/Length: 68 inches. BMI: 25.1. --20:32 Corrie R.N. Medications Albuterol Sulfate HFA Inhalation. --20:31 Julieth Denton. Allergies No Known Drug Allergy. --20:31 Corrie RAimee. History Historian: patient. Arrived in police custody. Treatment SPECIAL EDUCATION PARAPROFESSIONAL: None. PAST MEDICAL HX: Immunizations: up-to-date. SOCIAL HX: Light tobacco smoker- less than 1/2 a pack per day. Regular alcohol use. History of drug use: heroin, methamphetamines. Recently used drugs yesterday. No infectious disease exposure. SELF HARM ASSESSMENT: A self harm assessment was performed. The patient answered "no" to the question "Have you recently felt down, depressed, or hopeless?", "Have you noticed less interest or pleasure in doing things?", "Do you have thoughts of harming or killing yourself?", "Are you here because you tried to hurt yourself?", "Have you ever tried to hurt yourself before today?", "Have you recently had thoughts about harming or killing others?" and "Do you have any dangerous items in your possession?". FALL RISK ASSESSMENT: Fall risk assessment completed. No fall risk identified. NUTRITIONAL RISK ASSESSMENT: The nutritional risk assessment revealed no deficiencies. FUNCTIONAL ASSESSMENT: Functional assessment: no impairments noted. LEARNING NEEDS ASSESSMENT: The learning needs assessment revealed no barriers. SKIN INTEGRITY ASSESSMENT: Skin integrity risk assessment completed. No skin integrity risk identified. --20:33 Cesar Denton PROBLEMS: Asthma. --20:32 Julieth Denton. ADDITIONAL SURGERIES: Hernia Repair. --20:32 Julieth Denton. Interventions ID band on patient. To treatment room. --20:33 Cesar Denton PHYSICAL ASSESSMENT Ambulatory to room. GENERAL / NEURO / PSYCH: Alert. Oriented X 4. Appears in no acute distress. HEENT: Pupils equal, round and reactive to light. No facial asymmetry noted. Mucous membranes are pink. RESPIRATORY: Respirations not labored. Chest nontender. Breath sounds within normal limits. CVS: Normal sinus rhythm noted. Capillary refill less than 2 seconds. Pulses within normal limits. GI / : Abdomen soft and nontender and normal bowel sounds. SKIN: Skin is warm and dry. Normal skin turgor. --20:33 Cesar Denton NURSING PROGRESS NOTES Patient identifiers checked. Call light placed in reach. Side rails up x 1. Bed placed in lowest position. Brakes of bed on. --20:34 Cesar Denton DISPOSITION / DISCHARGE Departure time: 20:45. Condition at departure: improved. No learning barriers present. Discharge instructions provided and reviewed with the patient (police). Reviewed medication(s) side effects, precautions, dosing and course information. Prescription(s) given to the patient. Patient verbalized understanding. Written instructions provided in Sudanese. Verbalized understanding (police). No warning instructions, treatment instructions, referrals given to the patient, diet instructions or activity restrictions. No note given, follow up contact number given or stop smoking instructions. The patient was discharged by the nurse practitioner. He was discharged to police department facility and accompanied by a police escort. He left the Emergency Department ambulatory and via police department vehicle. Driving (police). FALL RISK ASSESSMENT: Fall risk assessment completed. No fall risk identified. --20:45 Cesar Denton 20:44 09/06/16. BP: deferred. HR: deferred. RR: deferred. O2 saturation: deferred. Pain level now deferred. --20:45 Cesar Denton Locked/Released at 09/06/2016 20:45 by Cesar Denton
--- NOTE | 2016-09-06 20:59 | ED MED RECONCILIATION SUMMARY ---
Patient: CHAU MARTINEZ Medication Reconciliation Report [facility] VisitID: [id number] [address] [place] [address] 30y, M Registration Date/Time: 09/06/2016 Weight: 74.8 kg Height/Length: 68 in. BMI: 25.1 ALLERGIES: No Known Drug Allergy The patient's Home Medications are listed below: THE FOLLOWING MEDICATIONS NEED TO BE RECONCILED: Albuterol Sulfate HFA Inhalation The source(s) of the original Home Medication information: Not obtained. The following Medications were given to the patient in the Emergency Department: None. The following Medications were prescribed to the patient: Albuterol HFA oral inhaler: inhale 1 to 2 puffs every four to six hours as needed for difficulty breathing. Dispense one (1) unit. No refills. -- Nunu Winslow A.R.N.P.
--- NOTE | 2016-09-06 20:59 | ED MAR SUMMARY ---
..... Medication Administration Record [facility] [address], [place] [id number] Patient: CHAU MARTINEZ Visit ID: [id number] 30y, M Weight: 74.8 kg Height/Length: 68 in BMI: 25.1 ALLERGIES: No Known Drug Allergy
--- NOTE | 2016-09-06 20:59 | ED DISCHARGE INSTRUCTIONS ---
Patient: CHAU MARTINEZ General Instructions [facility] VisitID: [id number] [place] [address] 30y, M Registration Date/Time: 09/06/2016 Normal exam upon presentation, while in the ED and at discharge. INSTRUCTIONS (patient is medically cleared to go with police to longterm). Warnings: GENERAL WARNINGS: Return or contact your physician immediately if your condition worsens or changes unexpectedly, if not improving as expected, or if other problems arise. Specifically return if problem worsens. Prescription Medications: Albuterol HFA oral inhaler: inhale 1 to 2 puffs every four to six hours as needed for difficulty breathing. Dispense one (1) unit. No refills. Follow-up: Follow up with your doctor in about one week as needed. Call for an appointment. Summary of care provided to patient. Understanding of the discharge instructions verbalized by patient. ADDITIONAL INFORMATION Normal Exam [6Yr - Adult] Based on your or your child's exam today, there are no signs of illness or injury. Be assured that the symptoms that worried you are normal. They do not suggest any illness requiring testing or treatment at this time. Home Care: You (or your child) can return to normal activities and diet. If you or your child have new or unusual symptoms not already discussed today, contact the doctor. Follow Up with the doctor for the next routine appointment. For more information: For childrens health information: www.kidshealth.org For adult health information: www.[email or web address]org Albuterol Sulfate Pressurized inhalation, suspension What is this medicine? ALBUTEROL (al BYOO ter ole) is a bronchodilator. It helps open up the airways in your lungs to make it easier to breathe. This medicine is used to treat and to prevent bronchospasm. How should I use this medicine? This medicine is for inhalation through the mouth. Follow the directions on your prescription label. Take your medicine at regular intervals. Do not use more often than directed. Make sure that you are using your inhaler correctly. Ask you doctor or health care provider if you have any questions. Talk to your adoption services manager regarding the use of this medicine in children. Special care may be needed. What side effects may I notice from receiving this medicine? Side effects that you should report to your doctor or health care taker as soon as possible: allergic reactions like skin rash, itching or hives, swelling of the face, lips, or tongue breathing problems chest pain feeling faint or lightheaded, falls high blood pressure irregular heartbeat fever muscle cramps or weakness pain, tingling, numbness in the hands or feet vomiting Side effects that usually do not require medical attention (report to your doctor or health care taker if they continue or are bothersome): cough difficulty sleeping headache nervousness or trembling stomach upset stuffy or runny nose throat irritation unusual taste What may interact with this medicine? anti-infectives like chloroquine and pentamidine caffeine cisapride diuretics medicines for colds medicines for depression or for emotional or psychotic conditions medicines for weight loss including some herbal products methadone some antibiotics like clarithromycin, erythromycin, levofloxacin, and linezolid some heart medicines steroid hormones like dexamethasone, cortisone, hydrocortisone theophylline thyroid hormones What if I miss a dose? If you miss a dose, use it as soon as you can. If it is almost time for your next dose, use only that dose. Do not use double or extra doses. Where should I keep my medicine? Keep out of the reach of children. Store at room temperature between 15 and 30 degrees C (59 and 86 degrees F). The contents are under pressure and may burst when exposed to heat or flame. Do not freeze. This medicine does not work as well if it is too cold. Throw away any unused medicine after the expiration date. Inhalers need to be thrown away after the labeled number of puffs have been used or by the expiration date; whichever comes first. Ventolin HFA should be thrown away 12 months after removing from foil pouch. Check the instructions that come with your medicine. What should I tell my health care provider before I take this medicine? They need to know if you have any of the following conditions: diabetes heart disease or irregular heartbeat high blood pressure pheochromocytoma seizures thyroid disease an unusual or allergic reaction to albuterol, levalbuterol, sulfites, other medicines, foods, dyes, or preservatives or trying to get breast-feeding What should I watch for while using this medicine? Tell your doctor or health care taker if your symptoms do not improve. Do not use extra albuterol. If your asthma or bronchitis gets worse while you are using this medicine, call your doctor right away. If your mouth gets dry try chewing sugarless gum or sucking hard candy. Drink water as directed. You have been given the following additional information: Normal Exam, (Child) (Adult) Albuterol Sulfate Pressurized inhalation, suspension (Electronically signed by Nunu Winslow A.R.N.P. 09/06/2016 20:59)
--- NOTE | 2016-09-06 20:59 | ED MAR SUMMARY ---
..... Medication Administration Record [facility] [address], [place] [id number] Patient: CHAU MARTINEZ Visit ID: [id number] 30y, M Weight: 74.8 kg Height/Length: 68 in BMI: 25.1 ALLERGIES: No Known Drug Allergy
--- NOTE | 2016-09-06 20:59 | ED MED RECONCILIATION SUMMARY ---
Patient: CHAU MARTINEZ Medication Reconciliation Report [facility] VisitID: [id number] [address] [place] [address] 30y, M Registration Date/Time: 09/06/2016 Weight: 74.8 kg Height/Length: 68 in. BMI: 25.1 ALLERGIES: No Known Drug Allergy The patient's Home Medications are listed below: THE FOLLOWING MEDICATIONS NEED TO BE RECONCILED: Albuterol Sulfate HFA Inhalation The source(s) of the original Home Medication information: Not obtained. The following Medications were given to the patient in the Emergency Department: None. The following Medications were prescribed to the patient: Albuterol HFA oral inhaler: inhale 1 to 2 puffs every four to six hours as needed for difficulty breathing. Dispense one (1) unit. No refills. -- Nunu Winslow A.R.N.P.
--- NOTE | 2016-09-06 20:59 | ED DISCHARGE INSTRUCTIONS ---
Patient: CHAU MARTINEZ General Instructions [facility] VisitID: [id number] [place] [address] 30y, M Registration Date/Time: 09/06/2016 Normal exam upon presentation, while in the ED and at discharge. INSTRUCTIONS (patient is medically cleared to go with police to residential). Warnings: GENERAL WARNINGS: Return or contact your physician immediately if your condition worsens or changes unexpectedly, if not improving as expected, or if other problems arise. Specifically return if problem worsens. Prescription Medications: Albuterol HFA oral inhaler: inhale 1 to 2 puffs every four to six hours as needed for difficulty breathing. Dispense one (1) unit. No refills. Follow-up: Follow up with your doctor in about one week as needed. Call for an appointment. Summary of care provided to patient. Understanding of the discharge instructions verbalized by patient. ADDITIONAL INFORMATION Normal Exam [6Yr - Adult] Based on your or your child's exam today, there are no signs of illness or injury. Be assured that the symptoms that worried you are normal. They do not suggest any illness requiring testing or treatment at this time. Home Care: You (or your child) can return to normal activities and diet. If you or your child have new or unusual symptoms not already discussed today, contact the doctor. Follow Up with the doctor for the next routine appointment. For more information: For childrens health information: www.kidshealth.org For adult health information: www.[email or web address] Albuterol Sulfate Pressurized inhalation, suspension What is this medicine? ALBUTEROL (al BYOO ter ole) is a bronchodilator. It helps open up the airways in your lungs to make it easier to breathe. This medicine is used to treat and to prevent bronchospasm. How should I use this medicine? This medicine is for inhalation through the mouth. Follow the directions on your prescription label. Take your medicine at regular intervals. Do not use more often than directed. Make sure that you are using your inhaler correctly. Ask you doctor or health care provider if you have any questions. Talk to your diesel technology instructor regarding the use of this medicine in children. Special care may be needed. What side effects may I notice from receiving this medicine? Side effects that you should report to your doctor or health youth care specialist as soon as possible: allergic reactions like skin rash, itching or hives, swelling of the face, lips, or tongue breathing problems chest pain feeling faint or lightheaded, falls high blood pressure irregular heartbeat fever muscle cramps or weakness pain, tingling, numbness in the hands or feet vomiting Side effects that usually do not require medical attention (report to your doctor or health youth care specialist if they continue or are bothersome): cough difficulty sleeping headache nervousness or trembling stomach upset stuffy or runny nose throat irritation unusual taste What may interact with this medicine? anti-infectives like chloroquine and pentamidine caffeine cisapride diuretics medicines for colds medicines for depression or for emotional or psychotic conditions medicines for weight loss including some herbal products methadone some antibiotics like clarithromycin, erythromycin, levofloxacin, and linezolid some heart medicines steroid hormones like dexamethasone, cortisone, hydrocortisone theophylline thyroid hormones What if I miss a dose? If you miss a dose, use it as soon as you can. If it is almost time for your next dose, use only that dose. Do not use double or extra doses. Where should I keep my medicine? Keep out of the reach of children. Store at room temperature between 15 and 30 degrees C (59 and 86 degrees F). The contents are under pressure and may burst when exposed to heat or flame. Do not freeze. This medicine does not work as well if it is too cold. Throw away any unused medicine after the expiration date. Inhalers need to be thrown away after the labeled number of puffs have been used or by the expiration date; whichever comes first. Ventolin HFA should be thrown away 12 months after removing from foil pouch. Check the instructions that come with your medicine. What should I tell my health care provider before I take this medicine? They need to know if you have any of the following conditions: diabetes heart disease or irregular heartbeat high blood pressure pheochromocytoma seizures thyroid disease an unusual or allergic reaction to albuterol, levalbuterol, sulfites, other medicines, foods, dyes, or preservatives or trying to get breast-feeding What should I watch for while using this medicine? Tell your doctor or health youth care specialist if your symptoms do not improve. Do not use extra albuterol. If your asthma or bronchitis gets worse while you are using this medicine, call your doctor right away. If your mouth gets dry try chewing sugarless gum or sucking hard candy. Drink water as directed. You have been given the following additional information: Normal Exam, (Child) (Adult) Albuterol Sulfate Pressurized inhalation, suspension (Electronically signed by Nunu Winslow A.R.N.P. 09/06/2016 20:59)
== END 2016-09-06 20:45 ==
LOC: ED SRH 20:33
DX: Z02.89 Encounter for other administrative examinations (principal)

== ENCOUNTER 2016-11-26 19:53 | Emergency (ER) | payer SELFPAY ==
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
--- NOTE | 2016-11-26 20:23 | ED CLINICAL REPORT ---
Clinical Report - Physicians/Mid Levels [facility] [address] [address] 11/26/2016 19:54 Patient: CHAU MARTINEZ *This is a preliminary document and is subject to change Time Seen: 20:22 Nov 26 2016. Arrived- By private vehicle. Historian- patient. Denver Cam MD
--- NOTE | 2016-11-26 20:23 | ED CLINICAL REPORT ---
Clinical Report - Physicians/Mid Levels [facility] [address] [place] [address] 11/26/2016 19:54 Patient: CHAU MARTINEZ *This is a preliminary document and is subject to change Time Seen: 20:22 Nov 26 2016. Arrived- By private vehicle. Historian- patient. Denver Cam MD
== END 2016-11-26 20:10 | disposition left against medical advice (07) ==
LOC: ED SRH 19:53
DX: Z53.21 Procedure and treatment not carried out due to patient leaving prior to being seen by health care provider (principal)